=== PATIENT | female | born 1985 | race Hispanic/Latino ===

== ENCOUNTER → 2020-02-06 | Outpatient (CLI) | payer OTHER ==
--- NOTE | 2020-02-06 12:35 | Diagnostic Imaging Report ---
EXAM: US THYROID, FNA US GUIDED 1ST LESION DATE: 02/06/2020 11:06 AM INDICATION: Thyroid nodules COMPARISON: None FINDINGS: The right thyroid lobe measures 6.4 x 2.2 x 2.2 cm. The isthmus measures 4 mm in thickness. The left thyroid lobe measures 6.6 x 3.8 x 3.4 cm. Multiple nodules are identified within the left thyroid lobe. The largest measures 3.6 x 2.5 x 3.2 cm and appears heterogeneous with cystic components. This lesion was started for FNA. After informed consent was obtained, the left neck was prepped and draped in sterile fashion. 1% lidocaine was used for local anesthesia. Using ultrasound guidance, following acquisition of permanent images, 2 fine-needle aspiration samples were obtained with 25-gauge needles and 2 fine needle aspiration samples were obtained using 22-gauge needles. The specimens were evaluated for adequacy by the cytopathology department. No additional samples were requested. The patient told the procedure without immediate IMPRESSION: Successful ultrasound-guided fine-needle aspiration of the dominant left thyroid nodule. Signed by: Dr. Severiano Carrasco MD on 02/06/2020 12:32 PM
== END ==
LOC: US 10:22
PROVIDERS: ATTEND Otolaryngology
DX: E04.2 Nontoxic multinodular goiter (principal); R22.1 Localized swelling, mass and lump, neck
CPT/HCPCS: 10005; 76536; 88112; 88172; 88173

== ENCOUNTER 2020-03-20 09:19 | Observation (INO) | payer OTHER ==
[~2020-03-20] VITALS: Ht 162.6 cm; Wt 92.1 kg
[~2020-03-20 09:19] MED LIST: DEXTROAMP-AMPHE30 M1 PO; PANTOPRAZOLE SO40 MG PO
[2020-03-20] MEDS ORDERED: LIDOCAINE 1% W/EPINEPHRINE 20 ML VIAL ONE (10:07)
[2020-03-20] MEDS ORDERED: MIDAZOLAM HCL 2 MG/2 ML VIAL ONE (12:53)
[2020-03-20] MEDS ORDERED: FENTANYL CITRATE/PF 100MCG/2 ML INJ ONE ×2 (12:53→14:53)
[2020-03-20 16:22] VITALS: BP 124/66
[2020-03-20 16:36] VITALS: BP 124/66
[2020-03-20] MEDS ORDERED: ONDANSETRON HCL INJ 2MG/ML 2ML 2 MG/ML VIAL IV PRN (16:45)
[2020-03-20] MEDS: HYDROCODONE/APAP 5MG-325MG TAB PO PRN ×2 (16:57→21:00)
[2020-03-20 20:00] VITALS: BP 123/66
[2020-03-20] MEDS: CEFAZOLIN SOD 1 GM/NS 50ML 50 ML IV SCH (20:35)
[2020-03-20 21:29] VITALS: BP 123/66
[2020-03-20] MEDS ORDERED: CEFAZOLIN SOD 1 GM VIAL IV SCH (22:00)
[2020-03-21] VITALS: BP 103/58
[2020-03-21] MEDS: HYDROCODONE/APAP 5MG-325MG TAB PO PRN ×3 (01:05→09:20)
[2020-03-21] MEDS: CEFAZOLIN SOD 1 GM/NS 50ML 50 ML IV SCH (03:44)
[2020-03-21 04:00] VITALS: BP 97/64
[2020-03-21 08:08] VITALS: BP 105/57
[2020-03-21 08:31] VITALS: BP 105/57
[2020-03-21] MEDS ORDERED: TYLENOL EXTRA500 MG PO (08:43)
[2020-03-21] MEDS ORDERED: PANTOPRAZOLE SOD 40 MG TABEC PO SCH (09:00)
== END 2020-03-21 10:30 | disposition home or self-care (01) ==
LOC: OR 09:19 → PACU V 15:27 → MED/SURG 16:33
PROVIDERS: ADMIT Otolaryngology; ATTEND Otolaryngology
DX: E01.0 Iodine-deficiency related diffuse (endemic) goiter (principal); K21.9 Gastro-esophageal reflux disease without esophagitis; Z01.812 Encounter for preprocedural laboratory examination; Z20.828 Contact with and (suspected) exposure to other viral communicable diseases; Z90.49 Acquired absence of other specified parts of digestive tract
CPT/HCPCS: 60220; 81025; 88307; 88331; G0378 ×2; J0690 ×2; J2250; J3010; U0002; 88305

== ENCOUNTER 2021-08-30 21:31 | Emergency (ER) | payer OTHER ==
[~2021-08-30] VITALS: Ht 162.6 cm; Wt 92.1 kg
[~2021-08-30 21:31] MED LIST changes: +TYLENOL EXTRA500 MG PO
[2021-08-30] MEDS ORDERED: ONDANSETRON HCL INJ 2MG/ML 2ML 2 MG/ML VIAL IV STA (22:02)
[2021-08-30] MEDS ORDERED: SODIUM CHLORIDE 0.9% 1000ML 1,000 ML IV STA (22:02)
[2021-08-30 22:23] LABS: BASOPHILS % 0.3 % (0.0-1.0); EOSINOPHILS % 0.2 % (0.0-6.0); HEMATOCRIT 43.9 % (34.2-44.1); HEMOGLOBIN 14.2 g/dL (12.0-16.0); LYMPHOCYTES # (AUTO) 4.2 (1.0-3.2); LYMPHOCYTES % 44.8 % (18.0-39.1); MEAN CORPUSCULAR HGB CONC 32.3 g/dL (31-35); MEAN CORPUSCULAR VOLUME 83.5 fL (81-99); MONOCYTES # (AUTO) 0.6 (0.2-0.8); MONOCYTES % 6.8 % (4.4-11.3); NEUTROPHILS # (AUTO) 4.5 (2.1-6.9); NEUTROPHILS % 47.7 % (38.7-80.0); PLATELET COUNT 343 x10e3/uL (140-360); RED BLOOD COUNT 5.26 x10e6/uL (3.6-5.1); RED CELL DISTRIBUTION WIDTH 12.6 % (11.7-14.4)
[2021-08-30 22:34] LABS: ALBUMIN 3.7 g/dL (3.5-5.0); ALBUMIN/GLOBULIN RATIO 0.8 (0.8-2.0); ANION GAP 17.2 mmol/L (8-16); CALCIUM 9.8 mg/dL (8.4-10.2); CREATININE, SERUM 0.8 mg/dL (0.57-1.11); POTASSIUM 4.2 mmol/L (3.5-5.1)
[2021-08-31] MEDS ORDERED: ONDANSETRON ODT4 MG PO (01:04)
== END 2021-08-31 01:11 | disposition home or self-care (01) ==
LOC: ER 21:58
DX: R07.0 Pain in throat (principal); R60.9 Edema, unspecified; K21.9 Gastro-esophageal reflux disease without esophagitis; F98.8 Other specified behavioral and emotional disorders with onset usually occurring in childhood and adolescence; Z20.822 Contact with and (suspected) exposure to COVID-19
CPT/HCPCS: 36415; 70491; 80053; 83518; 84443; 84702; 85025; 87070; 99283; J2405; J7030; U0002

== ENCOUNTER 2022-06-28 20:04 | Emergency (ER) | payer OTHER ==
[~2022-06-28] VITALS: Ht 162.6 cm; Wt 93.4 kg
[~2022-06-28 20:04] MED LIST changes: +ONDANSETRON ODT4 MG PO
[2022-06-28] MEDS ORDERED: ONDANSETRON HCL INJ 2MG/ML 2ML 2 MG/ML VIAL IV STA (21:08)
[2022-06-28 21:14] LABS: BASOPHILS % 0.2 % (0.0-1.0); EOSINOPHILS % 0.1 % (0.0-6.0); HEMATOCRIT 44.2 % (34.2-44.1); HEMOGLOBIN 14.3 g/dL (12.0-16.0); LYMPHOCYTES # (AUTO) 3.4 (1.0-3.2); LYMPHOCYTES % 39.4 % (18.0-39.1); MEAN CORPUSCULAR HEMOGLOBIN 26.9 pg (28-32); MEAN CORPUSCULAR HGB CONC 32.4 g/dL (31-35); MEAN CORPUSCULAR VOLUME 83.2 fL (81-99); MONOCYTES # (AUTO) 0.6 (0.2-0.8); MONOCYTES % 6.9 % (4.4-11.3); NEUTROPHILS # (AUTO) 4.5 (2.1-6.9); NEUTROPHILS % 53.2 % (38.7-80.0); PLATELET COUNT 329 x10e3/uL (140-360); RED BLOOD COUNT 5.31 x10e6/uL (3.6-5.1); RED CELL DISTRIBUTION WIDTH 12.8 % (11.7-14.4)
[2022-06-28] MEDS ORDERED: SODIUM CHLORIDE 0.9% 1000ML 1,000 ML IV SCH (21:15)
[2022-06-28] MEDS ORDERED: SODIUM CHLORIDE FLUSH 10 ML SYR IV PRN (21:15)
[2022-06-28 21:25] LABS: INR 0.97; PARTIAL THROMBOPLASTIN TIME 25.7 seconds (23.8-35.5); PROTHROMBIN TIME 13.4 seconds (11.9-14.5)
[2022-06-28 21:32] LABS: ALBUMIN 3.8 g/dL (3.5-5.0); ALBUMIN/GLOBULIN RATIO 0.8 (0.8-2.0); ANION GAP 16.6 mmol/L (8-16); CALCIUM 9.6 mg/dL (8.4-10.2); CREATININE, SERUM 0.75 mg/dL (0.57-1.11); POTASSIUM 3.6 mmol/L (3.5-5.1)
[2022-06-28 21:39] LABS: CLARITY,URINE SL CLOUDY (CLEAR); COLOR,URINE YELLOW (YELLOW); KETONES,URINE NEGATIVE (NEGATIVE); LEUKOCYTE ESTERASE ,URINE NEGATIVE (NEGATIVE); NITRITE,URINE NEGATIVE (NEGATIVE); PROTEIN,URINE DIPSTICK TRACE (NEGATIVE); URINE UROBILINOGEN 0.2 mg/dL (0.2 - 1)
[2022-06-28 21:42] LABS: AMPHETAMINES SCREEN,URINE NEGATIVE (NEGATIVE); BENZODIAZEPINES SCREEN,URINE NEGATIVE (NEGATIVE); PHENCYCLIDINE SCREEN,URINE NEGATIVE (NEGATIVE)
[2022-06-28 21:46] LABS: BACTERIA,URINE MODERATE /HPF; RBC,URINE >50 /HPF (0-5); WBC,URINE (MAN) 0-5 /HPF (0-5)
[2022-06-28 21:47] LABS: EPITHELIAL CELLS,URINE FEW /LPF; MUCUS,URINE MODERATE (RARE)
[2022-06-28] MEDS ORDERED: IOPAMIDOL 370 MG/ML 100 ML INFUS..BTL INJ ONE (22:15)
[2022-06-28] MEDS ORDERED: ONDANSETRON ODT4 MG PO (23:21)
== END 2022-06-28 23:41 | disposition home or self-care (01) ==
LOC: ER 20:27
DX: R50.9 Fever, unspecified (principal); J02.9 Acute pharyngitis, unspecified; R11.2 Nausea with vomiting, unspecified; R19.7 Diarrhea, unspecified; Z20.822 Contact with and (suspected) exposure to COVID-19
CPT/HCPCS: 36415; 74177; 80053; 80307; 81001; 83518; 83690; 84702; 85025; 85610; 85730; 87070; 99284; J2405; J7030; Q9967; U0002